=== PATIENT | female | born 2000 | race Caucasian/White ===

== ENCOUNTER 2022-12-25 04:52 | Day surgery (SDC) | payer OTHER ==
[2022-12-19 12:10] VITALS: BMI 29.0
[2022-12-25] MEDS ORDERED: PROPOFOL 20 ML ONE (07:44)
[2022-12-25] MEDS ORDERED: ROCURONIUM BROMIDE 50 MG/5 ML SYRINGE ONE (07:45)
[2022-12-25] MEDS ORDERED: MIDAZOLAM HCL 2 MG/2 ML SINGLE DOSE VIAL ONE (07:45)
[2022-12-25] MEDS ORDERED: SUCCINYLCHOLINE CHLORIDE 200 MG/10 ML SYRINGE ONE (07:45)
[2022-12-25] MEDS ORDERED: DEXAMETHASONE SOD PHOSPHATE 4 MG/1 ML VIAL ONE (08:10)
[2022-12-25] MEDS ORDERED: ONDANSETRON 4 MG/2 ML VIAL ONE ×2 (08:10→10:58)
[2022-12-25] MEDS ORDERED: ceFAZolin SODIUM 1 GM VIAL ONE (08:10)
[2022-12-25] MEDS ORDERED: ceFAZolin SODIUM 1 GM VIAL IVPB ONE (08:11)
[2022-12-25] MEDS ORDERED: OXYMETAZOLINE 0.05% NASAL SOLUTION 15 ML BOTTLE NS ONE (08:24)
[2022-12-25] MEDS ORDERED: LIDOCAINE 1%/EPI 1:100000 (50 ML MULTI DOSE VIAL) INF ONE (08:24)
[2022-12-25] MEDS ORDERED: NEOSTIGMINE METHYLSULFATE 0.5 MG/1 ML - 10 ML MDV ONE (08:56)
[2022-12-25] MEDS ORDERED: GLYCOPYRROLATE 0.2 MG/1 ML VIAL ONE (08:56)
[2022-12-25] MEDS ORDERED: ACETAMINOPHEN INJECTION 100 ML IVPB ONE (09:32)
[2022-12-25] MEDS ORDERED: oxyCODONE HCL 5 MG TABLET PO PRN (09:32)
[2022-12-25] MEDS ORDERED: ONDANSETRON 4 MG/2 ML VIAL IVPUSH PRN (09:32)
[2022-12-25] MEDS ORDERED: ACETAMINOPHEN 1000 MG/100 ML BAG IVPB ONE (09:32)
[2022-12-25] MEDS ORDERED: LACTATED RINGERS SOLUTION 1,000 ML IV SCH (09:45)
[2022-12-25 11:57] VITALS: RESP 20
[2022-12-25] MEDS ORDERED: oxyCODONE HCL 5 MG TABLET ONE (12:39)
[2022-12-25] MEDS ORDERED: oxyCODONE HCL 5 MG TABLET PO ONE (13:20)
[2022-12-25 15:06] VITALS: BP 103/67; PULSE 82; TEMP 97.4
== END 2022-12-25 14:30 | disposition home or self-care (01) ==
LOC: JASU-SURG 04:52
PROVIDERS: ATTEND Otolaryngology
PROC: 09BL8ZZ Excision of Nasal Turbinate, Via Natural or Artificial Opening Endoscopic (ICD-10-PCS; 2022-12-25)
PROC: 0CTPXZZ Resection of Tonsils, External Approach (ICD-10-PCS; principal; 2022-12-25 08:00)
PROC: 0CTQ0ZZ Resection of Adenoids, Open Approach (ICD-10-PCS; 2022-12-25 08:00)
DX: J34.3 Hypertrophy of nasal turbinates (principal); J35.3 Hypertrophy of tonsils with hypertrophy of adenoids; G47.33 Obstructive sleep apnea (adult) (pediatric)
CPT/HCPCS: 81025; 94760